=== PATIENT | male | born 1965 | race Caucasian/White ===

== ENCOUNTER 2017-02-03 14:02 | Emergency (ER) | payer SELFPAY ==
[2017-02-03 14:10] VITALS: BP 152/102
[2017-02-03] MEDS ORDERED: PERCOCET 5/325 PO ONE (15:26)
[2017-02-03] MEDS ORDERED: MOTRIN PO ONE (15:32)
--- NOTE | 2017-02-03 15:34 | Emergency Department Report ---
ED Lower Extremity HPI - General Chief Complaint: Extremity Injury, Lower Stated Complaint: RIGHT ANKLE TWISTED Time Seen by Provider: 02/03/17 15:16 Source: patient Mode of arrival: Ambulatory Limitations: No Limitations - History of Present Illness Initial Comments: 52-year-old -[place] male comes in for complaint of right ankle pain. Patient states "dictations off twisted my ankle today about an hour ago" dictations. Patient reports a history of 2 surgeries on his right ankle when surgery had plates placed with hardware and surgery had plate removed and replacement of screws. Patient reports his pain as a 9 out of 10 but was able to ambulate. Complaint: ankle injury -: hour(s) (1) Injury: Ankle: Right Type of Injury: inversion Severity scale (0 -10): 9 - Related Data Previous Rx's Medication Instructions Recorded Last Taken Type Ibuprofen [Motrin 800 MG tab] 800 mg PO Q8HR #60 tablet 02/03/17 Unknown Rx Allergies Allergy/AdvReac Type Severity Reaction Status Date / Time No Known Allergies Allergy Unverified 02/03/17 14:07 ED Review of Systems ROS: Stated complaint: RIGHT ANKLE TWISTED Other details as noted in HPI ED Past Medical Hx - Past Medical History Previous Medical History?: Yes - Surgical History Past Surgical History?: Yes Additional Surgical History: Right ankle surgery - Social History Smoking Status: Current Every Day Smoker Substance Use Type: Alcohol, Marijuana - Medications Home Medications: Home Medications Medication Instructions Recorded Confirmed Last Taken Type Ibuprofen [Motrin 800 MG tab] 800 mg PO Q8HR #60 tablet 02/03/17 Unknown Rx ED Physical Exam - General Limitations: No Limitations - Eye Eye exam: Present: normal appearance, PERRL, EOMI - Expanded Lower Extremity Exam Right Ankle exam: Absent: normal inspection (surgical scars noted in the medial malleolus), tenderness, swelling, abrasion, laceration, deformity, crepidus, dislocation, erythema, anterior draw sign (that is not able to be flexed or extended. this is his baseline) Foot/Toe exam: Absent: tenderness, swelling, deformity, crepidus Neuro vascular tendon exam: Present: no vascular compromise ED Course Vital Signs 02/03/17 14:07 Temperature 98.5 F Pulse Rate 71 Respiratory 20 Rate Blood Pressure 152/102 O2 Sat by Pulse 100 Oximetry ED Lower Extremity MDM - Radiology Data Radiology results: report reviewed, image reviewed FINDINGS: Two screws are seen associated with medial malleolus with another screw seen associated with the lateral malleolus. There has been bony fusion of the distal fibula and tibia. Moderate osteoarthritic changes are seen in the ankle joint. No fracture or dislocation is seen. Mild soft tissue swelling is seen. IMPRESSION: Arthritic changes and soft tissue swelling are seen without evidence of acute bony abnormality. - Medical Decision Making Patient was evaluated by this provider fast track. Patient was given ibuprofen for pain. X-ray was ordered and showed no acute fractures or dislocation. Patient asked for pain medication stronger than ibuprofen. Explained to patient that this is not an acute issue and that we can only discharge him on Motrin. Patient verbalized understanding. Critical care attestation.: If time is entered above; I have spent that time in minutes in the direct care of this critically ill patient, excluding procedure time. ED Disposition Clinical Impression: Sprain of ankle, right Qualifiers: Encounter type: subsequent encounter Involved ligament of ankle: unspecified ligament Qualified Code(s): S93.401D - Sprain of unspecified ligament of right ankle, subsequent encounter Disposition: DISCHARGED TO HOME OR SELFCARE Is pt being admited?: No Does the pt Need Aspirin: No Condition: Stable Instructions: Osteoarthritis (ED) Additional Instructions: Pain medication as prescribed. Follow-up with an orthopedic and pain management. Prescriptions: Ibuprofen [Motrin 800 MG tab] 800 mg PO Q8HR #60 tablet Referrals: PRIMARY MD MARK [Primary Care Provider] - 3-5 Days EFRA HUANG MD [Staff Physician] - 3-5 Days TRACY THOMAS MD [Staff Physician] - 3-5 Days [facility] [Provider Group] - 3-5 Days Forms: Work/School Release Form(ED)
--- NOTE | 2017-02-03 15:40 | XRay Report ---
FINAL REPORT PROCEDURE: XR ANKLE 3 RT TECHNIQUE: Three views of the right ankle are obtained. HISTORY: right ankle injury COMPARISON: No prior studies are available for comparison. FINDINGS: Two screws are seen associated with medial malleolus with another screw seen associated with the lateral malleolus. There has been bony fusion of the distal fibula and tibia. Moderate osteoarthritic changes are seen in the ankle joint. No fracture or dislocation is seen. Mild soft tissue swelling is seen. IMPRESSION: Arthritic changes and soft tissue swelling are seen without evidence of acute bony abnormality.
== END 2017-02-03 16:30 | disposition home or self-care (01) ==
LOC: ED 14:02
DX: S93.401A Sprain of unspecified ligament of right ankle, initial encounter (principal); F17.200 Nicotine dependence, unspecified, uncomplicated; F12.10 Cannabis abuse, uncomplicated; X50.1XXA Overexertion from prolonged static or awkward postures, initial encounter; Y93.89 Activity, other specified; Y92.89 Other specified places as the place of occurrence of the external cause; Y99.8 Other external cause status

== ENCOUNTER 2017-03-08 07:43 | Emergency (ER) | payer OTHER ==
[2017-03-08 08:07] LABS: Basophils % (Auto) 0.5 % (0.0-1.8); Eosinophils % (Auto) 0.7 % (0.0-4.3); Hematocrit 46.4 % (35.5-45.6); Mean Corpuscular HGB Conc 32 % (32-34); Mean Corpuscular Hemoglobin 30 pg (28-32); Mean Corpuscular Volume 93 fl (84-94); Platelet Count 395 K/mm3 (140-440); Red Blood Count 5.01 M/mm3 (3.65-5.03); Red Cell Distribution Width 14.8 % (13.2-15.2); White Blood Count 5.4 K/mm3 (4.5-11.0)
[2017-03-08 08:25] LABS: Alanine Aminotransferase 38 units/L (7-56); Albumin 4.3 g/dL (3.9-5); Albumin/Globulin Ratio 1.5 %; Alkaline Phosphatase 83 units/L (35-129); Anion Gap 18 mmol/L; BUN/Creatinine Ratio 7.27; Blood Urea Nitrogen 8 mg/dL (9-20); Calcium 9.2 mg/dL (8.4-10.2); Carbon Dioxide 25 mmol/L (22-30); Chloride 103.2 mmol/L (98-107); Glucose 91 mg/dL (75-100); Lipase 28 units/L (13-60); Potassium 4.7 mmol/L (3.6-5.0); Sodium 141 mmol/L (137-145); Total Protein 7.2 g/dL (6.3-8.2)
[2017-03-08 09:22] LABS: Bilirubin,Urine NEG (Negative); Blood,Urine SM (Negative); Ketones,Urine NEG (Negative); Leukocyte Esterase,Urine NEG (Negative); Nitrite,Urine NEG (Negative); Protein,Urine <15 mg/dL mg/dL (Negative); Urobilinogen,Urine < 2.0 mg/dL (<2.0); WBC,Urine < 1.0 /HPF (0.0-6.0)
[2017-03-08] MEDS ORDERED: NACL 0.9% 1000 ML 1,000 ML IV ONE (10:54)
[2017-03-08] MEDS ORDERED: PEPCID IV ONE (10:54)
[2017-03-08] MEDS ORDERED: BENTYL IM ONE (10:54)
--- NOTE | 2017-03-08 10:55 | Emergency Department Report ---
ED General Adult HPI - General Chief complaint: Abdominal Pain Stated complaint: ABD PAIN/HEMMOROIDS/ BLOOD IN STOOL Time Seen by Provider: 03/08/17 10:44 Source: patient Mode of arrival: Ambulatory Limitations: No Limitations - History of Present Illness Initial comments: This is a 52-year-old male male, previously unknown to me. He does not have a primary care doctor. He does not have any medical problems that he is aware. 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 He used to live in [place]. The patient presents to the ER with complaint of crampy abdominal pain, and intermittent bright red blood per rectum. This has been going on for a week. He reports that while in [place] last year, he had similar symptoms, reports negative CT scan of the abdomen and pelvis, and was referred to gastroenterology. He indicates he has not followed up with gastroenterology. The abdominal pain is cramping. It is diffusely lower. It does not radiate anywhere. Vomited once, nonbloody, nonbilious. There is no hematemesis. There is no black tarry stool. No testicular pain. No irritative or obstructive urinary symptoms. He does not take blood thinners. -: Gradual Location: abdomen Quality: aching Consistency: intermittent Improves with: rest Worsens with: movement Associated Symptoms: nausea/vomiting. denies: confusion, chest pain, cough, diaphoresis, fever/chills, headaches, loss of appetite, malaise, shortness of breath, syncope, weakness - Related Data Previous Rx's Medication Instructions Recorded Last Taken Type Dicyclomine [Bentyl] 10 mg PO QID PRN #20 capsule 03/08/17 Unknown Rx Famotidine [Pepcid] 20 mg PO QDAY #30 tablet 03/08/17 Unknown Rx Ondansetron [Zofran Odt] 4 mg PO QID PRN #20 tab.rapdis 03/08/17 Unknown Rx Allergies Allergy/AdvReac Type Severity Reaction Status Date / Time No Known Allergies Allergy Unverified 02/03/17 14:07 ED Review of Systems ROS: Stated complaint: ABD PAIN/HEMMOROIDS/ BLOOD IN STOOL Other details as noted in HPI Constitutional: denies: fever Eyes: denies: vision change ENT: denies: hearing loss Respiratory: denies: cough Cardiovascular: denies: chest pain Gastrointestinal: abdominal pain, hematochezia Genitourinary: denies: urgency, dysuria, testicular pain Musculoskeletal: denies: back pain Skin: denies: lesions Neurological: denies: headache ED Past Medical Hx - Past Medical History Previous Medical History?: No - Surgical History Additional Surgical History: Right ankle surgery - Social History Smoking Status: Current Every Day Smoker Substance Use Type: Alcohol, Marijuana - Medications Home Medications: Home Medications Medication Instructions Recorded Confirmed Last Taken Type Dicyclomine [Bentyl] 10 mg PO QID PRN #20 capsule 03/08/17 Unknown Rx Famotidine [Pepcid] 20 mg PO QDAY #30 tablet 03/08/17 Unknown Rx Ondansetron [Zofran Odt] 4 mg PO QID PRN #20 tab.rapdis 03/08/17 Unknown Rx ED Physical Exam - General Limitations: No Limitations General appearance: alert, in no apparent distress - Head Head exam: Present: atraumatic, normocephalic - Eye Eye exam: Present: normal appearance, EOMI. Absent: nystagmus - ENT ENT exam: Present: normal exam, normal orophraynx, mucous membranes moist, normal external ear exam - Neck Neck exam: Present: normal inspection, full ROM. Absent: tenderness, meningismus - Respiratory Respiratory exam: Present: normal lung sounds bilaterally. Absent: respiratory distress, wheezes, rales, rhonchi, stridor, chest wall tenderness, accessory muscle use, decreased breath sounds, prolonged expiratory - Cardiovascular Cardiovascular Exam: Present: regular rate, normal rhythm, normal heart sounds. Absent: bradycardia, tachycardia, irregular rhythm, systolic murmur, diastolic murmur, rubs, gallop - GI/Abdominal GI/Abdominal exam: Present: soft, normal bowel sounds. Absent: distended, tenderness, guarding, rebound, rigid - Rectal Rectal exam: Present: normal inspection, heme (-) stool, other (during rectal examination, I am escorted by nurse Dede Qiu) - Extremities Exam Extremities exam: Present: normal inspection, full ROM, normal capillary refill. Absent: tenderness, pedal edema, joint swelling, calf tenderness - Back Exam Back exam: Present: normal inspection, full ROM. Absent: tenderness, CVA tenderness (R), CVA tenderness (L), muscle spasm, paraspinal tenderness, vertebral tenderness - Neurological Exam Neurological exam: Present: alert, oriented X3, normal gait, other (Extraocular movements intact. Tongue midline. No facial droop. Facial sensation intact to light touch in the V1, V2, V3 distribution bilaterally. 5 and 5 strength in 4 extremities.. Sensation is intact to light touch in 4 extremities.). Absent : motor sensory deficit - Psychiatric Psychiatric exam: Present: normal affect, normal mood - Skin Skin exam: Present: warm, dry, intact, normal color. Absent: rash ED Course Vital Signs 03/08/17 03/08/17 07:51 12:09 Temperature 98.4 F Pulse Rate 63 82 Respiratory 20 16 Rate Blood Pressure 148/101 Blood Pressure 156/96 [Left] O2 Sat by Pulse 98 Oximetry - Reevaluation(s) Reevaluation #1: 03/08/17 12:42 Differential diagnosis: Colitis, diverticulitis, diverticulosis, angiodysplasia , hemorrhoids, malignancy Assessment and plan: 52-year-old male with complaint of abdominal pain and bright red blood per rectum. He is afebrile with reassuring vital signs, has benign physical examination, I do not detect any blood on rectal examination. His laboratory studies were unremarkable, he is tolerating liquid feeds, and a CT scan of the abdomen and pelvis did not demonstrate any acute surgical pathology that would require emergent intervention or antibiotic therapy. The patient will be discharged with nonnarcotic pain medication, nausea medication, instructions to closely follow up with outpatient gastroenterology. He specifically counseled that not following up in a timely fashion may result in an undiagnosed cancer/tumor/malignancy. The case is discussed with gastroenterology on-call, Dr. Kennedy, who agrees with this plan of care. The patient is given a printout of his CT scan report with him to the gastroenterology office. ED Medical Decision Making - Lab Data Result diagrams: 03/08/17 07:58 03/08/17 07:58 Vital Signs 03/08/17 03/08/17 07:51 12:09 Temperature 98.4 F Pulse Rate 63 82 Respiratory 20 16 Rate Blood Pressure 148/101 Blood Pressure 156/96 [Left] O2 Sat by Pulse 98 Oximetry Lab Results 03/08/17 03/08/17 03/08/17 Range/Units 07:58 07:58 08:18 WBC 5.4 (4.5-11.0) K/mm3 RBC 5.01 (3.65-5.03) M/mm3 Hgb 15.0 (11.8-15.2) gm/dl Hct 46.4 H (35.5-45.6) % MCV 93 (84-94) fl MCH 30 (28-32) pg MCHC 32 (32-34) % RDW 14.8 (13.2-15.2) % Plt Count 395 (140-440) K/mm3 Lymph % (Auto) 35.4 H (13.4-35.0) % [place] % (Auto) 11.2 H (0.0-7.3) % Eos % (Auto) 0.7 (0.0-4.3) % Baso % (Auto) 0.5 (0.0-1.8) % Lymph # 1.9 (1.2-5.4) K/mm3 [place] # 0.6 (0.0-0.8) K/mm3 Eos # 0.0 (0.0-0.4) K/mm3 Baso # 0.0 (0.0-0.1) K/mm3 Seg Neutrophils % 52.2 (40.0-70.0) % Seg Neutrophils # 2.8 (1.8-7.7) K/mm3 Sodium 141 (137-145) mmol/L Potassium 4.7 (3.6-5.0) mmol/L Chloride 103.2 (98-107) mmol/L Carbon Dioxide 25 (22-30) mmol/L Anion Gap 18 mmol/L BUN 8 L (9-20) mg/dL Creatinine 1.1 (0.8-1.5) mg/dL Estimated GFR > 60 ml/min BUN/Creatinine Ratio 7.27 % Glucose 91 (75-100) mg/dL Calcium 9.2 (8.4-10.2) mg/dL Total Bilirubin 0.20 (0.1-1.2) mg/dL AST 37 (5-40) units/L ALT 38 (7-56) units/L Alkaline Phosphatase 83 (35-129) units/L Total Protein 7.2 (6.3-8.2) g/dL Albumin 4.3 (3.9-5) g/dL Albumin/Globulin Ratio 1.5 % Lipase 28 (13-60) units/L Urine Color Straw (Yellow) Urine Turbidity Clear (Clear) Urine pH 6.0 (5.0-7.0) Ur Specific Harold 1.010 (1.003-1.030) Urine Protein <15 mg/dl (Negative) mg/dL Urine Glucose (UA) Neg (Negative) mg/dL Urine Ketones Neg (Negative) mg/dL Urine Blood Sm (Negative) Urine Nitrite Neg (Negative) Urine Bilirubin Neg (Negative) Urine Urobilinogen < 2.0 (<2.0) mg/dL Ur Leukocyte Esterase Neg (Negative) Urine WBC (Auto) < 1.0 (0.0-6.0) /HPF Urine RBC (Auto) 3.0 (0.0-6.0) /HPF - Radiology Data Radiology results: report reviewed, image reviewed CT scan of the abdomen and pelvis demonstrates no acute surgical pathology. Numerous incidental findings are noted. Patient is given a copy of his CT scan report. He is instructed to have a primary care doctor follow-up on the incidental findings. Critical care attestation.: If time is entered above; I have spent that time in minutes in the direct care of this critically ill patient, excluding procedure time. ED Disposition Clinical Impression: Abdominal pain Disposition: DISCHARGED TO HOME OR SELFCARE Is pt being admited?: No Does the pt Need Aspirin: No Condition: Stable Instructions: Gastrointestinal Bleeding (ED) Additional Instructions: Take the pain medication, nausea medication as directed. Avoid consumption of Aleve, ibuprofen, Motrin, aspirin, alcohol. Follow up with a primary care doctor or business strategist within the next month. [facility] to local gastroenterology practice; patient service hot[facility] is [phone] ([phone]) I recommended follow-up with gastroenterology for outpatient colonoscopy evaluation. Not following up may result in an undiagnosed tumor/cancer/ malignancy. Return to the ER right away with new pain, worsened pain, migration of pain, fevers or chills, intractable nausea or vomiting, inability to tolerate liquid feeds. Prescriptions: Dicyclomine [Bentyl] 10 mg PO QID PRN #20 capsule PRN Reason: Pain Famotidine [Pepcid] 20 mg PO QDAY #30 tablet Ondansetron [Zofran Odt] 4 mg PO QID PRN #20 tab.rapdis PRN Reason: Nausea Referrals: PRIMARY CARE, [Primary Care Provider] - 3-5 Days CECILE BUSH MD [Staff Physician] - 3-5 Days TYRA KENNEDY MD [Staff Physician] - 3-5 Days
--- NOTE | 2017-03-08 11:04 | Admit Criteria Form ---
Admission Criteria Documentation: GASTROINTESTINAL BLEEDING, LOWER Clinical Indications for Admission to Inpatient Care ( Place 'X' for any and all applicable criteria): Admission is indicated for ANY ONE of the following(1)(2)(3)(4)(5): [X ]I. Active gross bleeding per rectum [ ]II. Inpatient admission required rather than observation care (Also use Gastrointestinal Bleeding, Lower: Observation Care as appropriate) because of ANY ONE of the following: [ ]a) Hemodynamic instability that is severe or persistent [ ]b) Anemia requiring inpatient admission as indicated by ALL of the following: [ ]1) Presence of significant clinical finding indicated by ANY ONE of the following: [ ]A. Tachycardia for age [ ]B. Orthostatic vital sign changes [ ]C. Cognitive impairment [ ]D. Heart failure [ ]E. Chest pain [ ]F. Exertional dyspnea [ ]G. Other findings suggesting inadequate perfusion (eg, peripheral or myocardial ischemia, end organ dysfunction) [ ]2) Initial (eg, emergency department, observation care) treatment with transfusion or volume replacement is judged inappropriate (due to severity of the finding) or has been ineffective [ ]c) Severe pain requiring acute inpatient management [ ]d) Absent bowel sounds with complete ileus [ ]e) Signs of intestinal obstruction or peritonitis [A] [ ]f) High-risk low platelet count [ ]g) Severe electrolyte abnormalities requiring inpatient care [ ]h) Acute renal failure [ ]i) High fever or infection requiring inpatient admission as indicated by ANY ONE of the following(8)(9): [ ]1) Appropriate outpatient or observation care antimicrobial treatment unavailable, not effective, or not feasible Documented bacteremia [ ]2) Documented bacteremia [ ]3) Temperature greater than 104.9 degrees F ( 40.5 degrees C) (oral) [ ]4) Temperature greater than 103.1 degrees F ( 39.5 degrees C) (oral) or less than 96.8 degrees F (36 degrees C) (rectal) that does not respond to all emergency treatment measures [ ]j) IV fluid to replace significant ongoing losses ( greater than 3 L/m2 per day) [ ]k) Immediate inpatient surgery needed [ ]l) Parenteral nutrition regimen that must be implemented on inpatient basis [ ]m) Other condition, treatment or monitoring requiring inpatient admission [ ]III. Unstable comorbid illness (renal, hepatic, pulmonary, hematologic, neurologic, or cardiac) [ ]IV. Failure to control bleeding after colonoscopy [ ]V. Coagulopathy [ ]. Suspected or known ischemic colitis(6) [ ]VII. Previous aortic graft placement or known aortic aneurysm Extended stay beyond goal length of stay may be needed for(3)(4)(28): [ ]a) Emergency surgery [ ]b) Coagulation abnormalities(26) [ ]c) Recurrent or persistent bleeding, continued vital sign instability(27)( 28) [ ]d) Active comorbidities (eg, renal insufficiency, heart failure, pre- existing liver disease) The original [employer] content created by [employer] has been revised. The portions of the content which have been revised are identified through the use of italic text or in bold, and [facility] has neither reviewed nor approved the modified material. All other unmodified content is copyright [facility]. Please see references footnoted in the original [employer] edition 2016 Admission Criteria Met: Yes
[2017-03-08 12:10] VITALS: BP 156/96
--- NOTE | 2017-03-08 12:17 | Cat Scan Report ---
CT ABDOMEN AND PELVIS WITH CONTRAST INDICATION: Abdominal pain, GI bleed. COMPARISON: None similar. FINDINGS: Abdomen and pelvis CT performed following intravenous administration of 100 cc of Omnipaque 300. LUNG BASES: Top normal heart size. Slight bronchiectasis in the lower lobes, right more than left. Nonspecific distal esophageal wall thickening, not excluded for gastroesophageal reflux and/or hiatal hernia, amongst others. ABDOMEN: Liver, spleen, gallbladder, pancreas, adrenals, nonaneurysmal abdominal aorta, IVC and kidneys appear within normal limits bilaterally without hydronephrosis, ascites or size significant adenopathy. Nonopacified GI tract evaluation limited, though grossly nonobstructive. Mild fluid seen along the ascending colon. Normal appendix. PELVIS: Approximately 3.2 cm AP x 4.5 cm transverse prostate may be correlated for clinically and with PSA. Otherwise unremarkable urinary bladder and seminal vesicles. Rectosigmoid stool. Few pelvic phleboliths. No free fluid or significant adenopathy. Approximately 2 cm fat-containing right inguinal hernia. Mild lumbar levoscoliosis and lower thoracic and lower lumbar degenerative spurring noted. L3-L4 and L4-5 disc degeneration with vacuum phenomenon also seen. L5-S1 facet arthropathy. CONCLUSION: 1. No significant acute CT abnormality with a nonspecific, slight gastroenteritis-like appearance in an appropriate setting. Please correlate. 2. Various other incidental findings, as above. Thank you for the opportunity to participate in this patient's care.
== END 2017-03-08 12:58 | disposition home or self-care (01) ==
LOC: ED 07:43
DX: R10.9 Unspecified abdominal pain (principal); F17.200 Nicotine dependence, unspecified, uncomplicated; F12.10 Cannabis abuse, uncomplicated
CPT/HCPCS: 36415; 74177; 80053; 81001; 82271; 83690; 85025; 96361; 96372; 96374; 99284; J0500; J7030; Q9967

== ENCOUNTER 2017-04-12 10:23 | Emergency (ER) | payer MEDICARE, OTHER ==
[2017-04-12 12:00] VITALS: BP 151/99
--- NOTE | 2017-04-12 13:47 | Emergency Department Report ---
ED Rash HPI - HPI Chief Complaint: Skin/Abscess/Foreign Body Stated Complaint: R FOOT INFECTION Time Seen by Provider: 04/12/17 13:25 Duration: years Location: Lower Extremities (patient complain in between fourth and fifth toes on the right foot. He states that it's been leg just 4 years but he was kept it clean. Now he said he has older and radiating pain to his right ankle. Pain is 10 out of 10. Denies any fever or chills. Denies any injury. No medication taken per patient. Denies any drainage from) Suspected Cause: Unknown Rash Symptoms: Yes Itching (right foot btwn toes toes/foot pain btwn 4+h and 5th toes), Yes Peeling (between toes), No Facial Swelling, No Tongue/Oral Swelling, No Breathing Difficulties, No Choking Sensation, No Wheezing/Dyspnea, No Blistering, No Fever, No Lightheaded, No Malaise, No Myalgias Severity: severe Other History: Seen here complaining of swelling between the fourth and fifth toes on the right foot. He has been there for years but he noticed that there is an odor. Pain 10 out of 10 radiating into his ankle. No [id number] medication taken but he said he is keeping the area clean and dry. Denies any fever or chills. Denies any injury. Also complaining of." Between toes. Denies any drainage or redness. ED Review of Systems ROS: Stated complaint: R FOOT INFECTION Other details as noted in HPI Comment: All other systems reviewed and negative Constitutional: denies: chills, fever Cardiovascular: denies: chest pain, palpitations, edema, syncope Gastrointestinal: denies: abdominal pain, nausea, vomiting Musculoskeletal: arthralgia. denies: back pain, joint swelling, myalgia Skin: rash, pruritus Neurological: denies: headache, numbness, paresthesias ED Past Medical Hx - Past Medical History Previous Medical History?: No Hx Arthritis: Yes (right foot and ankle) - Surgical History Past Surgical History?: Yes Additional Surgical History: Right ankle surgery - Family History Family history: no significant - Social History Smoking Status: Current Every Day Smoker Substance Use Type: Alcohol, Marijuana - Medications Home Medications: Home Medications Medication Instructions Recorded Confirmed Last Taken Type Dicyclomine [Bentyl] 10 mg PO QID PRN #20 capsule 05/04/17 Unknown Rx Famotidine [Pepcid] 20 mg PO QDAY #30 tablet 03/08/17 Unknown Rx Ondansetron [Zofran Odt] 4 mg PO QID PRN #20 tab.rapdis 03/08/17 Unknown Rx Ibuprofen [Motrin] 600 mg PO Q8H PRN #15 tablet 04/12/17 Unknown Rx Naftifine HCl [Naftin] 45 gm TP BID #1 cream..g. 04/12/17 Unknown Rx Sulfamethoxazole/Trimethoprim 1 each PO BID #20 tablet 04/12/17 Unknown Rx [Bactrim DS TAB] Rash Exam - Exam General: Vital signs noted. No distress. Alert and acting appropriately. This is a 52-year-old male well-nourished no acute distress HEENT: No Periorbital Edema, No Conjuctival Injection, No Chemosis, No Perioral Edema, No Tongue Edema, No Uvular Edema, No Compromised Airway, No Drooling Lungs: Yes Good Air Exchange, No Wheezes, No Ronchi, No Stridor, No Cough, No Labored Respirations, No Retractions, No Use of Accessory Muscles, No Other Abnormal Lung Sounds Heart: Yes Regular (patient is 52 which is normal for him. He is asymptomatic.) , No Murmur Skin: Yes Maculopapular Rash, Yes Tenderness (right foot between fourth and fifth toe.), Yes Erythema (right foot between fourth and fifth toe), Yes Other ( dry flaky skin in between toes on right foot. Tenderness to palpate between right and forth toe), No Urticarial Rash, No Morbilliform rash, No Bulla(e), No Excoriations, No Weeping, No Edema, No Encrustations Other: Positive: Abdomen Normal, Neurologic Normal, Musculoskeletal Normal ED Course Vital Signs 04/12/17 11:57 Temperature 98.5 F Pulse Rate 54 L Respiratory 16 Rate Blood Pressure 151/99 O2 Sat by Pulse 100 Oximetry - Reevaluation(s) Reevaluation #1: 04/12/17 13:49 Patient's stable throughout ED stay ED Medical Decision Making - Medical Decision Making ED course: Reports right foot pain with soreness between fourth and fifth toe to right foot. Patient has tinea pedis per imposed bacterial infection between her right fourth and fifth toe. I explained diagnosis and treatment plans patient any force understand and service home with prescription for Critical care attestation.: If time is entered above; I have spent that time in minutes in the direct care of this critically ill patient, excluding procedure time. ED Disposition Clinical Impression: Tinea pedis of left foot, Cellulitis of toe, left, Arthralgia of left foot Disposition: TO HOME OR SELFCARE Is pt being admited?: No Does the pt Need Aspirin: No Condition: Stable Instructions: Arthralgia (ED), Tinea Pedis (ED), Antifungals (On the skin), Cellulitis (ED) Additional Instructions: Patient states antibiotic as scheduled. Topical antifungal cream as instructed Keep areas between toes clean and dry. Since he do not have a primary care physician. Follow-up with [facility] Prescriptions: Ibuprofen [Motrin] 600 mg PO Q8H PRN #15 tablet PRN Reason: Pain Naftifine HCl [Naftin] 45 gm TP BID #1 cream..g. Sulfamethoxazole/Trimethoprim [Bactrim DS TAB] 1 each PO BID #20 tablet Referrals: [facility] [Outside] - 04/16/17 Forms: Work/School Release Form(ED)
== END 2017-04-12 14:00 | disposition home or self-care (01) ==
LOC: ED 10:23
DX: B35.3 Tinea pedis (principal); L03.032 Cellulitis of left toe; F17.200 Nicotine dependence, unspecified, uncomplicated; F12.10 Cannabis abuse, uncomplicated
CPT/HCPCS: 99282

== ENCOUNTER 2017-05-21 09:14 | Emergency (ER) | payer SELFPAY ==
[2017-05-21 09:24] VITALS: BP 156/99
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
== END 2017-05-21 14:30 | disposition home or self-care (01) ==
LOC: ED 09:14
DX: S13.4XXA Sprain of ligaments of cervical spine, initial encounter (principal); W18.39XA Other fall on same level, initial encounter; Y93.9 Activity, unspecified; Y92.9 Unspecified place or not applicable; Y99.9 Unspecified external cause status
CPT/HCPCS: 99282